=== PATIENT | female | born 2005 | race Caucasian/White ===

== ENCOUNTER 2025-01-05 12:03 | Emergency (ER) | payer BC, MEDICAID ==
[2025-01-05 12:21] VITALS: BP 132/82; PULSE 101
== END 2025-01-05 13:08 | disposition home or self-care (01) ==
LOC: LL.ED 12:03
DX: B34.9 Viral infection, unspecified (principal); Z88.0 Allergy status to penicillin; Z88.2 Allergy status to sulfonamides; Z79.890 Hormone replacement therapy; Z79.899 Other long term (current) drug therapy; Z86.16 Personal history of COVID-19
CPT/HCPCS: 71046; 87428-QW; 87651; 99283; 99285